=== PATIENT | female | born 1980 | race African-American/Black ===

== ENCOUNTER 2017-01-18 17:27 | Emergency (ER) | payer OTHER ==
[~2017-01-18] VITALS: Ht 157.5 cm; Wt 59.0 kg
[2017-01-18 19:27] LABS: URINE SOURCE CLEAN CATCH
[2017-01-18 19:35] LABS: BASOPHIL% 0.5 % (0-2.5); EOSINOPHIL# 0.1 X10e3 (0-0.7); EOSINOPHIL% 1.1 % (0.0-7.0); HEMATOCRIT 36.3 % (35.0-45.0); HEMOGLOBIN 11.7 gm/dL (12.0-16.0); LYMPHOCYTE# 2.2 X10e3 (1.0-3.5); LYMPHOCYTE% 27.3 % (17.0-45.0); MEAN CELL VOLUME 85.1 FL (83-96); MEAN CORPUSCULAR HEMOGLOBIN 27.3 PG (28-34); MEAN CORPUSCULAR HGB CONC 32.1 g/dL (30-36); MEAN PLATELET VOLUME 9.2 FL (6.5-11.5); MONOCYTE# 0.8 X10e3 (0-1.0); MONOCYTE% 10.3 % (3.0-12.0); NEUTROPHIL# 4.8 X10e3 (1.5-7.1); NEUTROPHIL% 60.8 % (40-75); PLATELET COUNT 286 X10e3 (140-420); RED BLOOD COUNT 4.27 X10e (3.90-5.30); RED CELL DISTRIBUTION WIDTH 14.7 % (11.0-15.5); WHITE BLOOD COUNT 7.9 X10e3 (4.0-10.5)
[2017-01-18 19:38] LABS: DIFF IND NO; URINE APPEARANCE CLEAR; URINE BILIRUBIN NEG (NEG); URINE BLOOD NEG (NEG); URINE COLOR YELLOW; URINE GLUCOSE NEG (NEG); URINE KETONE NEG (NEG); URINE LEUKOCYTE ESTERASE NEG (NEG); URINE NITRATE NEG (NEG); URINE PH 6.5 (5-8); URINE PROTEIN NEG (NEG)
[2017-01-18 19:40] LABS: CULTURE INDICATED? NO
[2017-01-18 19:59] LABS: CALCIUM SERUM 9.9 mg/dL (8.4-10.2); GLOM FILT RATE Estimated 85.2 mL/min (>60); POTASSIUM 3.9 mmol/L (3.5-5.1)
[2017-01-18 20:00] LABS: AMPHETAMINE NEG (NEG); BARBITURATES NEG (NEG); BENZODIAZEPINES NEG (NEG); COCAINE NEG (NEG); MARIJUANA POS (NEG); OPIATES NEG (NEG); TRICYCLIC ANTIDEPRESSANTS NEG (NEG); U METHADONE NEG (NEG)
== END 2017-01-18 20:27 | disposition home or self-care (01) ==
LOC: CFTX 17:27 → CED 17:27 → CFTX 18:43
PROVIDERS: Nurse Practitioner
DX: F41.9 Anxiety disorder, unspecified (principal); F32.9 Major depressive disorder, single episode, unspecified; L98.9 Disorder of the skin and subcutaneous tissue, unspecified; F17.210 Nicotine dependence, cigarettes, uncomplicated
CPT/HCPCS: 36415; 80048; 80307; 81003; 85025; 99283

== ENCOUNTER 2017-01-23 17:14 | Emergency (ER) | payer OTHER ==
[~2017-01-23] VITALS: Ht 157.5 cm; Wt 56.7 kg
--- NOTE | ~2017-01-23 | CR63 ---
[facility] A Service of [facility] RADIOLOGY TEXT RESULTS PATIENT: JOSE ROBERTO KAUFMAN LOCATION: CFTX : 84 UNIT #: [id number] AGE: [address]: Holly Emerson APRN SEX: F ORDER DR: [id number] [facility] [address] [place], [place] [address] [id number] MR#: [id number] Acc #: [id number] NAME: JOSE ROBERTO KAUFMAN : 1980 SEX: F STUDY DATE/TIME: 01/23/2017 18:25 UNIT: TX ROOM: STUDY DESCRIPTION: CR Chest 2 View Attending Physician: Holly Emerson A.P.R.N. Referring Physician: Primary Care Physician Deedee Ordering Physician: Ed Doctor [id number] [facility] Primary Care Physician: Primary Care Physician No MEDICAL IMAGING REPORT This report is preliminary unless electronic signature is present EXAM Two-view chest 01/23/2017 HISTORY 36-year-old female with shortness of air and right-sided chest pain for 2 weeks. COMPARISON Chest 12/31/2009. FINDINGS Two views of the chest demonstrate clear lungs. No pleural effusion or pneumothorax. Heart size and mediastinum are normal. Pulmonary vasculature normal. IMPRESSION No acute cardiopulmonary findings. Dictated by... Marshall Smith M.D. THIS IS AN ELECTRONICALLY VERIFIED REPORT Marshall Smiht M.D. at 01/24/2017 10:16 AM NIKI/jessica TD: 01/24/2017 06:21 JOB #: [id number] MEDICAL IMAGING REPORT Page 1 of 1 COPY
== END 2017-01-23 19:10 | disposition home or self-care (01) ==
LOC: CED 17:14 → CFTX 17:14
DX: J20.9 Acute bronchitis, unspecified (principal); F32.9 Major depressive disorder, single episode, unspecified; F41.9 Anxiety disorder, unspecified; I10 Essential (primary) hypertension; F17.200 Nicotine dependence, unspecified, uncomplicated
CPT/HCPCS: 71020; 84703; 94640; 99285